=== PATIENT | female | born 1995 | race Caucasian/White ===

== ENCOUNTER 2018-07-09 17:29 | Outpatient (CLI) | payer MEDICAID ==
[~2018-07-09] VITALS: Ht 160 cm; Wt 69.8 kg
[2018-07-09 17:54] VITALS: BP_SYST 116; PULSE 109; Ht 160 cm; Wt 69.8 kg
[2018-07-09] MEDS ORDERED: PNV11TAB PO (17:56)
--- NOTE | 2018-07-09 21:03 | PN ---
Triage Information Date/Time Reason for visit: Possible leakage of fluid Weeks of Gestation 26 weeks and 2 days /Para Diabetes: none Hypertention: none Objective Vital Signs Date Temp Pulse Resp B/P (MAP) Pulse Ox O2 O2 Flow FiO2 Time Delivery Rate 07/09/18 98.3 109 116/ 17:54 Heart Rate: 130's Contractions: None Results/Medications Results 24 hrs Laboratory Tests Test 07/09/18 18:10 Membranes Rupture NEGATIVE Disposition: Discharge Assessment/Plan 22 years old 3 para 0020 at 26 weeks and 2 days with a LUÍS of 10/13/2018 complaining of possible leakage of fluid. She states good movement. She denies nausea, vomiting, shortness of breath, chest pain, headache, visual changes, vaginal bleeding. - FHR: No sign of metabolic acidosis- Category I - Continuous EFM, toco - She has no uterine contractions - Speculum exam performed: No leakage or gush of fluid seen. Nitrazine and ROM plus were negative - Ultrasound performed, cervical length 3.1 cm. LAITH 13.1 cm at. - Patient reassured - Symptoms and sign of labor, preeclampsia, kick count discussed with patient, she voiced understanding. All of her questions answered. - Patient was discharged home in stable condition with the appropriate discharge instructions provided. I would like patient to have close follow-up with her primary physician or outpatient clinic in 3 days or return to triage for worsening symptoms or any other urgent concerns. RICARDA CALIXTO Jul 09, 2018 21:03
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
== END 2018-07-09 20:34 | disposition home or self-care (01) ==
LOC: OBT 17:29 → L-D 17:30 → OBT 20:34
PROVIDERS: ATTEND Obstetrics & Gynecology
DX: O41.92X0 Disorder of amniotic fluid and membranes, unspecified, second trimester, not applicable or unspecified (principal); Z3A.26 26 weeks gestation of pregnancy
CPT/HCPCS: 76815; 76817; 84112; Z7500; G0463

== ENCOUNTER 2018-09-01 15:39 | Outpatient (CLI) | payer MEDICAID, OTHER ==
[~2018-09-01] VITALS: Ht 160 cm; Wt 75.2 kg
[~2018-09-01 15:39] MED LIST: PNV11TAB PO
[2018-09-01 16:03] VITALS: Ht 160 cm; Wt 75.2 kg
[2018-09-01 18:33] VITALS: BP 122/61; PULSE 104; RESP 19
--- NOTE | 2018-09-01 19:28 | PN ---
Triage Information Date/Time Reason for visit: One elevated blood pressure in office and dizziness, referred for further evaluation Weeks of Gestation 34 weeks /Para Diabetes: none Hypertention: none Objective Vital Signs Date Temp Pulse Resp B/P (MAP) Pulse Ox O2 O2 Flow FiO2 Time Delivery Rate 09/01/18 98.1 104 19 122/61 Room Air 18:33 (81) Heart Rate: 130's Contractions: None Results/Medications Result Diagram: 09/01/18 1722 09/01/18 1721 Results 24 hrs Laboratory Tests Test 09/01/18 17:10 09/01/18 17:21 09/01/18 17:22 Urine Color YELLOW Urine Clarity CLEAR Urine pH 7.0 Urine Specific [place] 1.015 Urine Ketones NEGATIVE Urine Nitrite NEGATIVE Urine Bilirubin NEGATIVE Urine Urobilinogen NEGATIVE Urine Leukocyte Esterase NEGATIVE Urine Hemoglobin NEGATIVE Urine Glucose NEGATIVE Urine Total Protein NEGATIVE Sodium Level 136 Potassium Level 3.9 Chloride Level 108 Carbon Dioxide Level 21 Anion Gap 7 Blood Urea Nitrogen 10 Creatinine 0.48 Est Glomerular Filtrat > 60 Rate mL/min Glucose Level 85 Uric Acid 4.3 Calcium Level 9.1 Total Bilirubin 0.3 Direct Bilirubin 0.00 Indirect Bilirubin 0.3 Aspartate Amino Transf (AST/SGOT) 14 L Alanine 15 Aminotransferase (ALT/SGPT) Alkaline Phosphatase 128 H Total Protein 6.8 Albumin 3.6 Globulin 3.20 Albumin/Globulin Ratio 1.12 White Blood Count 8.2 Red Blood Count 3.44 L Hemoglobin 9.7 L Hematocrit 29.3 L Mean Corpuscular Volume 85.2 Mean Corpuscular Hemoglobin 28.2 L Mean Corpuscular 33.1 Hemoglobin Concent Red Cell Distribution Width 14.3 Platelet Count 272 Mean Platelet Volume 9.3 Immature Granulocytes % 0.700 H Neutrophils % 59.6 Lymphocytes % 24.8 Monocytes % 10.6 Eosinophils % 3.9 Basophils % 0.4 Nucleated Red Blood Cells % 0.0 Immature Granulocytes # 0.060 H Neutrophils # 4.9 Lymphocytes # 2.0 Monocytes # 0.9 Eosinophils # 0.3 Basophils # 0.0 Nucleated Red Blood Cells # 0.0 Prothrombin Time 12.2 Prothrombin Time Ratio 1.0 INR International 0.89 Normalized Ratio Activated Partial Thromboplast 25.5 Time Fibrinogen 455.0 Plasma Fibrin >10 and <40 H Degradation Products Disposition: Discharge Assessment/Plan 23 years old 2 para 0010 with single intrauterine at 34 weeks complaining of dizziness with one elevated blood pressure in office, referred f or further evaluation. She states good movement. She denies nausea, vomiting, shortness of breath, chest pain, headache, visual changes, vaginal bleeding or LOF. -FHR: No sign of metabolic acidosis- Category I -Contractions: None -Ultrasound performed: Normal LAITH, BPP 8 out of 8 -Symptoms and sign of labor, preeclampsia, kick count discussed with patient, she voiced understanding. All of her questions answered. -Patient was discharged home in stable condition with the appropriate discharge instructions provided. I would like patient to have close follow-up with her primary physician or outpatient clinic in 1-2 days or return to triage for worsening symptoms or any other urgent concerns. 2) she states had dizziness, currently has no symptom. Hemoglobin is 9.7. Recommend increase ferrous sulfate to 325 mg twice daily with 2 vitamin daily. RICARDA CALIXTO Sep 01, 2018 19:28
== END 2018-09-01 19:11 | disposition home or self-care (01) ==
LOC: OBT 15:39 → L-D 15:40 → OBT 19:11
PROVIDERS: ATTEND Obstetrics & Gynecology
DX: O26.893 Other specified pregnancy related conditions, third trimester (principal); R42 Dizziness and giddiness; R03.0 Elevated blood-pressure reading, without diagnosis of hypertension; Z3A.34 34 weeks gestation of pregnancy
CPT/HCPCS: 76818; 80053; 81003; 84560; 85025; 85362; 85384; 85610; 85730; Z7500; G0463

== ENCOUNTER 2018-09-03 12:54 | Emergency (ER) | payer OTHER ==
[~2018-09-03] VITALS: Ht 160 cm; Wt 74.0 kg
[2018-09-03 13:08] VITALS: Ht 160 cm; Wt 74.0 kg
--- NOTE | 2018-09-03 14:09 | ERD ---
ER Documentation Chief Complaint Chief Complaint pt sent by OB for ER eval and EKG, cleared 2 days ago from OB, palp x 1 wk HPI This is a 23-year-old previously healthy female currently at 34 weeks gestational age who is presenting with 1 week of palpitations and reported tachycardia. She has been evaluated by her pastoral worker a few times this week, including today. There are no obvious problems with the , but the patient has remained tachycardic. She does endorse a history of anemia throughout her . She reports shortness of breath and a heaviness, but she denies any chest pain or pleuritic pain. She does also endorse intermittent episodes of lightheadedness. She denies any history of blood clots or bleeding disorders. She does not have a personal or family history of DVT or PE. She is not on any hormonal medications. She has not been bedbound for any reason. She has not had any recent surgeries or admissions to the hospital. She has not been on any flights or prolonged drives. She does not endorse any calf tenderness or swelling. The patient denies feeling sick recently. The patient denies fever or chills. The patient has had no headache or vision changes. The patient does not endorse neck or back pain. The patient denies nausea or vomiting. The patient denies abdominal pain. The patient denies changes to bowel movements or urination. The patient has had no focal deficits. The patient has had no weakness or numbness or tingling to the face or extremities. ROS All systems reviewed and are negative except as per history of present illness. Medications Home Meds Reported Medications Ferrous Sulfate* (Ferrous Sulfate*) 325 Mg Tabec, 325 MG PO TID, TAB 09/03/18 Loratadine* (Loratadine*) 10 Mg Tablet, 10 MG PO DAILY, #30 TAB 09/03/18 [id number] ( ) 1 Each Tablet, 1 TAB PO DAILY, TAB 07/09/18 Allergies Allergies: Coded Allergies: No Known Allergy (Unverified , 09/03/18) PMhx/Soc Medical and Surgical Hx: pt denies Medical Hx, pt denies Surgical Hx History of Surgery: Yes (Appendectomy) Anesthesia Reaction: No Hx Neurological Disorder: No Hx Respiratory Disorders: No Hx Cardiac Disorders: No Hx Psychiatric Problems: No Hx Miscellaneous Medical Probl: No Hx Alcohol Use: No Hx Substance Use: No Hx Tobacco Use: No FmHx Family History: No diabetes Physical Exam Vitals Vital Signs Date Temp Pulse Resp B/P (MAP) Pulse Ox O2 O2 Flow FiO2 Time Delivery Rate 09/03/18 98.6 135 18 100/70 97 Room Air 14:00 (80) 09/03/18 98.6 127 18 121/69 99 13:08 (86) Physical Exam Const: No apparent distress, well-developed, well-nourished Head: Normocephalic, Atraumatic Eyes: Normal Conjunctiva. Extraocular movements intact. ENT: Normal External Ears, Nose and Mouth. Neck: Full range of motion. No meningismus. Resp: Clear to auscultation bilaterally, No wheezes, rales or rhonchi Cardio: Regular rhythm. Tachycardia. No murmurs, rubs or gallops Abd: Soft, non tender, non distended. Gravid uterus. Normal bowel sounds Skin: No petechiae or rashes Back: No midline tenderness. No CVA tenderness Ext: No cyanosis, or edema Neur: Awake and alert, oriented 4. Cranial nerves intact. No facial droop. Normal strength, sensation and coordination. Psych: Normal Mood and Affect Result Diagram: 09/03/18 1406 09/03/18 1406 Results 24 hrs Laboratory Tests Test 09/03/18 14:06 White Blood Count 6.9 10^3/ul Red Blood Count 3.57 10^6/ul Hemoglobin 10.0 g/dl Hematocrit 29.9 % Mean Corpuscular Volume 83.8 fl Mean Corpuscular Hemoglobin 28.0 pg Mean Corpuscular Hemoglobin Concent 33.4 g/dl Red Cell Distribution Width 14.3 % Platelet Count 258 10^3/UL Mean Platelet Volume 9.1 fl Immature Granulocytes % 0.900 % Neutrophils % 61.5 % Lymphocytes % 22.4 % Monocytes % 11.2 % Eosinophils % 3.6 % Basophils % 0.4 % Nucleated Red Blood Cells % 0.0 /100WBC Immature Granulocytes # 0.060 10^3/ul Neutrophils # 4.2 10^3/ul Lymphocytes # 1.5 10^3/ul Monocytes # 0.8 10^3/ul Eosinophils # 0.3 10^3/ul Basophils # 0.0 10^3/ul Nucleated Red Blood Cells # 0.0 10^3/ul Sodium Level 136 mmol/L Potassium Level 3.9 mmol/L Chloride Level 108 mmol/L Carbon Dioxide Level 20 mmol/L Anion Gap 8 Blood Urea Nitrogen 8 mg/dl Creatinine 0.42 mg/dl Est Glomerular Filtrat Rate mL/min > 60 mL/min Glucose Level 114 mg/dl Calcium Level 9.1 mg/dl Troponin I < 0.012 ng/ml B-Type Natriuretic Peptide 13 PG/ML Thyroid Stimulating Hormone (TSH) 1.490 MIU/L Free Thyroxine 1.02 ng/dl Ethyl Alcohol Level < 10.0 mg/dl Procedures/MDM MDM The patient's presentation warrants further investigation. Previous medical records, if available, were reviewed. LABS The patient's laboratory testing was obtained and reviewed. No emergent treatment was required unless described below. CBC: No E/o systemic infection or severe anemia or thrombocytopenia. Normocytic anemia, nonemergent. Chemistry: No E/o severe acidosis or alkalosis or renal failure or diabetic ketoacidosis Troponin: No E/o acute ischemia BNP: No E/o heart failure TFTs: Within normal limits EKG EKG at 12:50PM read by me: Rate/Rhythm: Sinus tachycardia at 119 bpm Intervals: Normal Arnold: Normal Impression: Sinus tachycardia. Nonspecific repolarization changes without evidence of acute ischemia. EKG at 12:51PM read by me: Rate/Rhythm: Sinus tachycardia at 148 bpm Intervals: Normal Arnold: Normal Impression: Sinus tachycardia. Nonspecific repolarization changes without evidence of acute ischemia. IMAGING Imaging and Radiology interpretation reviewed. CXR FINDINGS: The lungs are clear. The heart size is normal. There is no pleural effusion. There is no pneumothorax. IMPRESSION: Normal chest radiograph. Electronically viewed and signed by Benny Sexton MD, on 09/03/2018 14:24 BLE Doppler FINDINGS: There is normal compressibility and flow within the bilateral common femoral, femoral and popliteal veins. The right posterior tibial vein was not visualized. The left posterior tibial vein is patent. The bilateral peroneal veins are patent. IMPRESSION: No sonographic evidence for deep venous thrombosis. Electronically viewed and signed by Kvng Doherty MD, on 09/03/2018 14:49 TREATMENT/DISPOSITION The patient presents with tachycardia and palpitations. Aside from tachycardia, the patient's workup is unremarkable. The patient has a reassuring physical exam. The patient is not clinically orthostatic. The patient is not dizzy. I have decreased suspicion for vertigo. The patient has no signs of emergent or symptomatic anemia. The patient does not have any emergent electrolyte or metabolic emergencies. The patient's thyroid studies were unremarkable. I have decrease suspicion for a thyroid disorder. The patient is not toxic appearing. I have decreased suspicion for an infectious etiology of symptoms. The patient's EKG and troponin are reassuring. I have low suspicion for acute coronary syndrome. I do not see evidence of any emergent cardiac arrhythmia, which includes but is not limited to heart block, Brugada syndrome or WPW. The patient has no heart murmurs or rales. There is no evidence of cardiomegaly on exam or chest xray. I have low suspicion for hypertrophic cardiomyopathy. I do not see evidence of CHF. The patient does not endorse any chest or pleuritic p ain. The history is negative for bleeding or clotting disorders. The patient has not been involved in any recent prolonged trips or surgeries or hospitalizations. The patient has no calf tenderness or swelling. The patient did have bilateral lower extremity Dopplers completed which were negative for DVT. I have also reassured by the negative troponin and negative BNP. There is no evidence of demand ischemia. I have very low suspicion for PE as the etiology of symptoms. That said, I discussed with the patient the possibility of obtaining a CTA of the chest today to definitively evaluate for the possibility of pulmonary embolism. Shared decision-making was enacted. Given the risks of radiation to the fetus, the patient declined the procedure. The patient has been evaluated multiple times by her pastoral worker, including this morning. The patient's tachycardia could be related to her third trimester . The patient may follow-up with her pastoral worker from an instep tract standpoint. I have low suspicion for an obstetric emergency. When the patient is allowed to rest in the room without any agitation, the patient's heart rate drops down to the low 100s. Anxiousness or stress could certainly be an etiology of her symptoms. Given that the patient has been tachycardic for 1-2 weeks, I did discuss the possibility of admission and observation in the hospital. The risks and benefits of admission versus discharge were discussed with the patient, but the patient preferred discharge with close follow-up. The patient understands that she should return to the emergency department for any recurrent or worsening symptoms. DISCHARGE Upon reevaluation of the patient, symptoms have improved. No emergent diagnoses were identified. At this time, I feel that the patient stable for discharge. The patient was instructed to follow-up with a primary care physician in 1-3 d ays. The patient will be given strict precautions with which to return to the emergency department. Prescriptions: None The patient's blood pressure was elevated at greater than 120/80 while in the emergency department. The patient was otherwise stable with no evidence of hypertensive urgency or emergency. The patient does not require admission for blood pressure control. I have discussed with the patient the risks of hypertension. I have instructed the patient to return to the ER for any new or worsening symptoms including chest pain, shortness of breath, headache, blurred vision, confusion, nausea, vomiting or LOC. I have advised the patient to follow up with the primary care physician for outpatient monitoring and treatment for hypertension in 1-3 days. Disclaimer: Inadvertent spelling and grammatical errors are likely due to EHR/dictation software use and do not reflect on the overall quality of patient care. Note that the electronic time recorded on this note does not necessarily reflect the actual time of the patient encounter. Departure Diagnosis: Primary Impression: Sinus tachycardia Additional Impressions: Palpitations Third trimester at less than 36 weeks Normocytic anemia Condition: Stable Patient Instructions: Anemia During , Palpitations, : Your Third Trimester Changes, Sinus Tachycardia Additional Instructions: Thank you for for coming to [facility] for your care today. Please ask your nurse or provider if you have questions about your care today and do not leave until all your questions have been answered. Please use any medications given as directed and follow-up with your doctor (or the doctor you were referred to) in the next 1-3 days. If you do not have a primary care doctor you may follow up at the community hospital or formerly [facility] (listed below). You may also use motrin and tylenol as needed for fever and/or pain unless instructed otherwise by your provider or nurse. Indications for more urgent follow-up have been discussed, but you may return to the Emergency Department at ANY time for any worrisome or worsening symptoms. If you have abdominal pain, please know that no test or exam you received is perfect and you should follow up within 8 hours for continued pain. If you had any imaging studies today, such as an X-Ray or CT Scan, these studies will be reviewed later by a radiologist. You will be called if there are important findings that were not identified today, so make sure the contact information you provided at registration is correct. If you received any narcotic pain control medicine today, such as Vicodin, Morp adriana or Dilaudid, your coordination and judgment may be affected for a number of hours. Please do not drive or operate heavy machinery, and you may want someone to assist you at home. If you were given a prescription for narcotic medication, be aware that it is very addictive- use sparingly and only if necessary. PLEASE SEEK FURTHER EVALUATION AND MANAGEMENT AT YOUR DOCTORS OFFICE WITHIN THE NEXT 1-3 DAYS. IT IS YOUR RESPONSIBILITY TO MAKE AN APPOINTMENT FOR FOLOW-UP CARE. IF YOU HAVE A PRIMARY DOCTOR, PLEASE CALL THEIR OFFICE TO SCHEDULE AN APPOINTMENT FOR FOLLOW UP. IF YOU DO NOT HAVE A PRIMARY DOCTOR YOU CAN CALL OUR PHYSICIAN REFERRAL HOTLINE AT IF YOU CAN NOT AFFORD TO SEE A PHYSICIAN YOU CAN CHOSE FROM THE FOLLOWING [facility]: [facility] [address] [facility]. [facility] [address] [facility] [facility] [address] [facility] [address] [facility]. [facility] [address] [facility]. [facility]. [address] KELSIE WOLF MD Sep 03, 2018 14:09
[2018-09-03] MEDS ORDERED: FER325 PO (15:27)
[2018-09-03] MEDS ORDERED: LORA10TA3 PO (15:27)
[2018-09-03 17:44] VITALS: BP 116/72; PULSE 102; RESP 18
== END 2018-09-03 17:45 | disposition home or self-care (01) ==
LOC: E/R 12:54
DX: O26.893 Other specified pregnancy related conditions, third trimester (principal); R00.0 Tachycardia, unspecified; R00.2 Palpitations; O99.013 Anemia complicating pregnancy, third trimester; Z3A.34 34 weeks gestation of pregnancy
CPT/HCPCS: 36415; 71045; 80048; 80307; 83880; 84439; 84443; 84484; 85025; 93970; Z7502

== ENCOUNTER 2018-09-23 10:17 | Emergency (ER) | payer OTHER ==
[~2018-09-23] VITALS: Ht 167.6 cm; Wt 77.1 kg
[~2018-09-23 10:17] MED LIST changes: +FER325 PO; +LORA10TA3 PO
[2018-09-23 10:43] VITALS: Ht 167.6 cm; Wt 77.1 kg
--- NOTE | 2018-09-23 13:00 | ERD ---
ER Documentation Chief Complaint Chief Complaint Sent from OB for evaluation tachycardia and low Sat ROS All systems reviewed and are negative except as per history of present illness. Medications Home Meds Reported Medications Ferrous Sulfate* (Ferrous Sulfate*) 325 Mg Tabec, 325 MG PO TID, TAB 09/03/18 Loratadine* (Loratadine*) 10 Mg Tablet, 10 MG PO DAILY, #30 TAB 09/03/18 [id number] ( 19) 1 Each Tablet, 1 TAB PO DAILY, TAB 07/09/18 Allergies Allergies: Coded Allergies: No Known Allergy (Unverified , 09/23/18) PMhx/Soc History of Surgery: Yes (Appendectomy) Anesthesia Reaction: No Hx Neurological Disorder: No Hx Respiratory Disorders: No Hx Cardiac Disorders: No Hx Psychiatric Problems: No Hx Miscellaneous Medical Probl: No Hx Alcohol Use: No Hx Substance Use: No Hx Tobacco Use: No Smoking Status: Never smoker Physical Exam Vitals Vital Signs Date Temp Pulse Resp B/P (MAP) Pulse Ox O2 O2 Flow FiO2 Time Delivery Rate 09/23/18 98.2 105 18 118/85 98 Room Air 13:58 (96) 09/23/18 98.9 125 20 134/76 94 10:43 (95) Physical Exam Const: No acute distress Head: Atraumatic Eyes: Normal Conjunctiva ENT: Normal External Ears, Nose and Mouth. Neck: Full range of motion. No meningismus. Resp: Clear to auscultation bilaterally Cardio: Regular rate and rhythm, no murmurs Abd: Soft, non tender, non distended. Normal bowel sounds Skin: No petechiae or rashes Back: No midline or flank tenderness Ext: No cyanosis, or edema Neur: Awake and alert Psych: Normal Mood and Affect Result Diagram: 09/23/18 1238 09/23/18 1238 Results 24 hrs Laboratory Tests Test 09/23/18 12:38 White Blood Count 9.3 10^3/ul Red Blood Count 3.89 10^6/ul Hemoglobin 10.7 g/dl Hematocrit 32.6 % Mean Corpuscular Volume 83.8 fl Mean Corpuscular Hemoglobin 27.5 pg Mean Corpuscular Hemoglobin Concent 32.8 g/dl Red Cell Distribution Width 14.8 % Platelet Count 237 10^3/UL Mean Platelet Volume 9.4 fl Immature Granulocytes % 0.500 % Neutrophils % 67.2 % Lymphocytes % 15.0 % Monocytes % 12.6 % Eosinophils % 4.3 % Basophils % 0.4 % Nucleated Red Blood Cells % 0.0 /100WBC Immature Granulocytes # 0.050 10^3/ul Neutrophils # 6.3 10^3/ul Lymphocytes # 1.4 10^3/ul Monocytes # 1.2 10^3/ul Eosinophils # 0.4 10^3/ul Basophils # 0.0 10^3/ul Nucleated Red Blood Cells # 0.0 10^3/ul Sodium Level 138 mmol/L Potassium Level 4.1 mmol/L Chloride Level 109 mmol/L Carbon Dioxide Level 21 mmol/L Anion Gap 8 Blood Urea Nitrogen 4 mg/dl Creatinine 0.42 mg/dl Est Glomerular Filtrat Rate mL/min > 60 mL/min Glucose Level 101 mg/dl Calcium Level 9.3 mg/dl Current Medications Medications Dose Sig/Radha Start Time Status Last (Trade) Ordered Route PRN Stop Time Admin Dose Reason Admin IV Flush 10 ml STK-MED 09/23/18 DC (NS 10 ml) ONCE .ROUTE 13:24 09/23/18 13:25 Sodium 100 ml @ ud STK-MED 09/23/18 DC Chloride ONCE .ROUTE 13:09/23/18 13:25 Iohexol 100 ml @ ud STK-MED 09/23/18 DC ONCE .ROUTE 13:09/23/18 13:25 Procedures/MDM DOCUMENTS REVIEWED: ED nurse, [ ] LAB INTERPRETATION: [ ] EKG: Time: [ ] My Interpretation IMAGING: PROCEDURE: XR Chest. CLINICAL INDICATION: chest pain TECHNIQUE: Single frontal view of the chest was obtained COMPARISON: None FINDINGS: The heart and mediastinum are within normal limits. There is a mild patchy right lower lobe infiltrate. The lungs are otherwise clear. There is no pleural effusion or pneumothorax. RPTAT: AA IMPRESSION: Mild patchy right lower lobe infiltrate. .Kvng Doherty MD, Date Time Electronically viewed and signed by .Kvng Doherty MD, on 09/23/2018 12:49 .S/ ED COURSE: [] REEXAMINATION/REEVALUATION: Time: 14:50. CT pulmonary angiogram findings as above nondiagnostic. Case discussed with Dr. Sexton. VQ scan recommended. Extensive conversation with the patient regarding further imaging and additional radiation exposure risks. Decision was made to proceed with imaging to rule out pulmonary embolism. MEDICAL DECISION MAKIN-year-old female G1, P0, last menstrual. 01/05/2018 with a EDC of 10/13/2018 referred to the ED for evaluation of shortness of breath and tachycardia. Patient was being seen at [facility] for a regular follow-up and found to be tachycardia with heart rates up to 140. Admit to [med/surg, telemetry, ICU] for further evaluation and management. CALLS/CONSULTS: Time: [ ], [ ]. PATIENT CARE TRANSITIONED: Time: [], [ ]. Counseled [patient and family] regarding diagnosis, diagnostic results and plan for admission Departure Diagnosis: Primary Impression: Tachycardia Additional Impressions: Shortness of breath Weeks of gestation: 37 weeks Qualified Codes: Z3A.37 - 37 weeks gestation of RAÚL PELAEZ MD September 23, 2018 12:59
[2018-09-23] MEDS ORDERED: IOHEXOL 100 ML ONE (13:24)
[2018-09-23] MEDS ORDERED: SOD CHLORIDE 0.9% 100 ML ONE (13:24)
[2018-09-23 15:35] VITALS: BP 126/91; PULSE 108; RESP 18
== END 2018-09-23 15:35 | disposition home or self-care (01) ==
LOC: E/R 10:17
DX: O99.89 Other specified diseases and conditions complicating pregnancy, childbirth and the puerperium (principal); R00.0 Tachycardia, unspecified; R06.02 Shortness of breath; Z3A.37 37 weeks gestation of pregnancy
CPT/HCPCS: 71045; 71275; 80048; 85025; 93005; Q9967; Z7502; Z7610

== ENCOUNTER 2018-10-16 10:39 | Inpatient (IN) | payer OTHER ==
[~2018-10-16] VITALS: Ht 160 cm; Wt 80.6 kg
[2018-10-16 11:57] VITALS: Ht 160 cm; Wt 80.6 kg
[2018-10-16 11:58] VITALS: BP 115/61; PULSE 98; RESP 18
[2018-10-16] MEDS ORDERED: OXYTOCIN 30 UNITS/LR 500 ML IV SCH ×2 (13:30)
[2018-10-16] MEDS ORDERED: METHYLERGONOVINE 0.2 MG INJ IM PRN (13:30)
[2018-10-16] MEDS ORDERED: LIDOCAINE 1% (MPF) 30 ML INJ INJ PRN (13:30)
[2018-10-16] MEDS ORDERED: OXYTOCIN 30 UNITS/LR 500 ML IV PRN (13:30)
[2018-10-16] MEDS ORDERED: CARBOPROST 250 MCG INJ IM PRN (13:30)
[2018-10-16] MEDS ORDERED: MISOPROSTOL 200 MCG TAB PR PRN (13:30)
[2018-10-16] MEDS ORDERED: BUTORPHANOL 2 MG INJ IV PRN ×2 (13:30)
[2018-10-16] MEDS: MISOPROSTOL 50 MCG CAPSULE PO SCH ×2 (18:28→23:19)
[2018-10-16] MEDS: LACTATED RINGER'S 1,000 ML IV SCH (22:16)
[2018-10-17] MEDS: MISOPROSTOL 50 MCG CAPSULE PO SCH ×6 (03:46→21:00)
[2018-10-17] MEDS: LACTATED RINGER'S 1,000 ML IV SCH ×3 (06:16→22:10)
--- NOTE | 2018-10-17 12:24 | HP ---
Date/Time of Note Date/Time of Note DATE: 10/17/18 TIME: 12:19 OB - History Hx of Present Free Text/Dictation 23-year-old female 3 para 0 AB 2 at 40+ weeks gestation admitted for induction of labor Last Menstrual Period: Jan 06, 2018 Estimated Due Date: October 13, 2018 : 3 Para: 0 Therapeutic : 2 Ultrasounds: Normal mid trimester US Obstetrical Complications: None Medical Complications: Other Past Family/Social History * Past Medical, Surgical, Family and Obstetric Histories reviewed from chart. Blood Type: B+ Rubella: immune RPR/VDRL: Negative GBS Status: Negative HBsAG: Negative OB Admission Exam Vital Signs Vital Signs Vital Signs Date Temp Pulse Resp B/P (MAP) Pulse Ox O2 O2 Flow FiO2 Time Delivery Rate 10/16/18 98.1 98 18 115/61 11:58 (79) Physical Exam HEENT: WNL Heart: Rhythm Normal Lungs: Clear, Equal Abdomen: WNL Extremities: Normal Reflexes: Normal Cervical Dilatation: None Effacement: 0% Station: -3 Membranes: Intact Heart Rate: 140's Accelerations: Accelerations Present Decelerations: No Decelerations Varibility: Marked Contractions on Admission: None Last 72 hours Lab Results CBC & BMP 10/16/18 14:30 OB Assessment/Plan Other Assessment: Post term and desires induction of labor Other plan: This labor Via Cytotec ingestion BHARTI MEJIA MD October 17, 2018 12:24
[2018-10-18] MEDS: MISOPROSTOL 50 MCG CAPSULE PO SCH (01:00)
[2018-10-18] MEDS ORDERED: OXYTOCIN 30 UNITS/LR 500 ML IV SCH (02:00)
[2018-10-18] MEDS: LACTATED RINGER'S 1,000 ML IV SCH ×4 (07:08→21:16)
[2018-10-18] MEDS ORDERED: FENTAnyl 2MCG/ML-ROPIV 0.2% 100 ML ONE (13:03)
--- NOTE | 2018-10-18 13:05 | PN ---
Date/Time of Note Date/Time of Note DATE: 10/18/18 TIME: 13:05 OB Subjective Subjective Subjective Complaint of minimal uterine contractions OB Objective Objective Objective Vital signs are stable in general physical exam is unchanged Cervix is 50% and 2 cm Membranes are ruptured and fluid appeared clear OB Assessment/Plan Other Assessment: Term gestation Unexplained tachycardia Other plan: Continue with Pitocin augmentation of labor BHARTI MEJIA MD October 18, 2018 13:05
--- NOTE | 2018-10-18 13:13 | PREAC ---
Date/Time of Note Date/Time of Note DATE: 10/18/18 TIME: 13:12 Anesthesia Eval and Record Evaluation Time Pre-Procedure Interview DATE: 10/18/18 TIME: 12:34 Age 23 Sex female NPO: 8 hrs Preoperative diagnosis iup @ 40 + wks., , labor Planned procedure judi Past Medical History Past Medical History: Includes : : (3), Para: (0), Gestational age: (40 plus wks.) Surgery & Anesthesia Issues No known issue Meds Anticoagulation: No Beta Mar within 24 hr: No Reason Beta Mar not given: Pt. not on B-Mar Reported Medications Ferrous Sulfate* (Ferrous Sulfate*) 325 Mg Tabec, 325 MG PO TID, TAB 09/03/18 Loratadine* (Loratadine*) 10 Mg Tablet, 10 MG PO DAILY, #30 TAB 09/03/18 [id number] ( 19) 1 Each Tablet, 1 TAB PO DAILY, TAB 07/09/18 Current Medications Lactated Ringer's 1,000 ml @ 125 mls/hr Q8H IV Last administered on 10/18/18at 12:23; Admin Dose 125 MLS/HR; Start 10/16/18 at 13:16 Butorphanol Tartrate (Stadol) 1 mg Q2H PRN IV .PAIN SCALE 1-5; Start 10/16/18 at 13:30 Butorphanol Tartrate (Stadol) 2 mg Q2H PRN IV .PAIN SCALE 6-10; Start 10/16/18 at 13:30 Lidocaine (Xylocaine 1% (Mpf)) 30 ml ONCE PRN INJ .EPISIOTOMY; Start 10/16/18 at 13:30 Oxytocin/Lactated Ringer's 500 ml @ 500 mls/hr ONCE POST IV ; Start 10/16/18 at 13:30 Oxytocin/Lactated Ringer's 500 ml @ 125 mls/hr POST IV ; Start 10/16/18 at 13:30 Oxytocin/Lactated Ringer's 500 ml @ 0 mls/hr ONCE PRN IV .VAGINAL BLEEDING; Start 10/16/18 at 13:30 Methylergonovine Maleate (Methergine) 0.2 mg ONCE PRN IM .VAGINAL BLEEDING; Start 10/16/18 at 13:30 Carboprost Tromethamine (Hemabate) 250 mcg ONCE PRN IM .VAGINAL BLEEDING; Start 10/16/18 at 13:30 Misoprostol (Cytotec) 1,000 mcg ONCE PRN TN .VAGINAL BLEEDING; Start 10/16/18 at 13:30 Oxytocin/Lactated Ringer's 500 ml @ 0 mls/hr FOR AUGMENTATION IV Last administered on 10/18/18at 03:09; Admin Dose 1 MLS/HR; Start 10/18/18 at 02:00 Meds reviewed: Yes Allergies Coded Allergies: No Known Allergy (Unverified , 09/23/18) Allergies Reviewed: Yes Labs/Studies Labs Reviewed: Reviewed by anesthesiologist Result Diagram: 10/16/18 1430 test: Positive Pre-procedure Exam Last vitals Vital Signs Date Temp Pulse Resp B/P (MAP) Pulse Ox O2 O2 Flow FiO2 Time Delivery Rate 10/16/18 98.1 98 18 115/61 11:58 (79) Airway: Adequate mouth opening, Adequate thyromental dist Mallampati: Mallampati II Teeth: Normal Lung: Normal Heart: Normal ASA Physical Status ASA physical status: 2 Emergency: E Planned Anesthetic Neuraxial: Epidural Planned Pain Management Epidural, Local by surgeon Pre-operative Attestations Prior to commencing anesthesia and surgery, the patient was re-evaluated, there was verification of: *The patient's identity *The results of appropriate recent lab work and preoperative vital signs *The above evaluation not changing prior to induction *Anesthetic plan, risk benefits, alternative and complications discussed with patient/family; questions answered; patient/family understands, accepts and wishes to proceed. [employer] used SIXTO CASAS MD October 18, 2018 13:13
[2018-10-18] MEDS: FENTAnyl 2MCG/ML-ROPIV 0.2% 100 ML BAG EPI SCH ×2 (13:20→17:59)
[2018-10-18] MEDS ORDERED: ONDANSETRON 4 MG INJ IV PRN (13:30)
[2018-10-18] MEDS ORDERED: NALOXONE (0.4 MG/ML) INJ IV PRN (13:30)
[2018-10-18] MEDS ORDERED: MINERAL OIL LIGHT 10 ML VIAL TOP PRN (21:30)
--- NOTE | 2018-10-18 23:44 | LDN ---
Date/Time of Note Date/Time of Note DATE: 10/18/18 TIME: 23:41 Delivery Summary of a viable baby girl weighing 3290 grams or 7# 4 oz, 20" long, and with Apgars of 8/9. Weeks of Gestation 40w 5d Placenta Delivered: Spontaneously Meconium: none Episiotomy: No Perineal laceration: 2 Laceration repair: 2nd degree perineal laceration and b/l labial lacerations all repaired with 2-0 chromic. Anesthesia type: Epidural (and local.) Estimated blood loss: 150 Sponge & Needle done & correct: Yes All needle counts correct: Yes Any foreign bodies felt in the: No (vagina) Infant Delivery Information Sex Infant Sex: female Apgars 1 Minute: 8 5 Minute: 9 Suctioning Nose & mouth suctioned at hank: Yes Delee suction performed: No Umbilical Cord Umbilical cord with: 3 Vessels Cord presentations: no nuchal cord Cord Blood was obtained: Yes Mother & Baby Disposition Disposition Mom & Baby to Maternity; Good: Yes Baby to NICU: No AMANDA ALVAREZ MD October 18, 2018 23:44
[2018-10-19] MEDS ORDERED: MISOPROSTOL 200 MCG TAB PR PRN
[2018-10-19] MEDS ORDERED: OXYTOCIN 30 UNITS/LR 500 ML IV PRN
[2018-10-19] MEDS ORDERED: LANOLIN HPA 1 PKT TOP PRN
[2018-10-19] MEDS ORDERED: BENZOCAINE 20% 56 ML SPRAY TOP PRN
[2018-10-19] MEDS ORDERED: METHYLERGONOVINE 0.2 MG INJ IM PRN
[2018-10-19] MEDS ORDERED: HYDROCODONE/APAP (5/325) TAB PO PRN
[2018-10-19] MEDS ORDERED: CARBOPROST 250 MCG INJ IM PRN
[2018-10-19] MEDS: IBUPROFEN 600 MG TAB PO SCH ×4 (00:20→17:43)
[2018-10-19 01:00] VITALS: BP 115/70; PULSE 97; RESP 18
[2018-10-19] MEDS: LACTATED RINGER'S 1,000 ML IV* SCH ×4 (01:47→23:44)
--- NOTE | 2018-10-19 01:53 | PAC ---
Date/Time of Note Date/Time of Note DATE: 10/19/18 TIME: 01:52 Post-Anesthesia Notes Post-Anesthesia Note Last documented vital signs Vital Signs Date Temp Pulse Resp B/P (MAP) Pulse Ox O2 O2 Flow FiO2 Time Delivery Rate 10/19/18 98.0 97 18 115/70 Room Air 01:00 (85) Activity: WNL Respiratory function: WNL Cardiovascular function: WNL Mental status: Baseline Pain reasonably controlled: Yes Hydration appropriate: Yes Nausea/Vomiting absent: Yes SIXTO CASAS MD October 19, 2018 01:52
[2018-10-19 02:00] VITALS: BP 118/69; PULSE 88; RESP 19
[2018-10-19] MEDS: OXYTOCIN 30 UNITS/LR 500 ML IV SCH ×2 (03:29→09:44)
[2018-10-19 04:00] VITALS: BP 121/71; PULSE 83; RESP 18
[2018-10-19 08:30] VITALS: BP 110/63; PULSE 83; RESP 18
[2018-10-19] MEDS: SENNA/DOCUSATE NA (8.6MG/50MG) TAB PO SCH ×2 (09:39→20:32)
[2018-10-19] MEDS ORDERED: WITCH HAZEL/GLYCERIN PAD PR PRN (14:00)
[2018-10-19 15:42] VITALS: BP 114/70; PULSE 95; RESP 18
--- NOTE | 2018-10-19 18:27 | PD.PPDC ---
NURSING MANAGER Discharge Instruction Provider Information Physician Information 28-year-old female had vaginal delivery Diagnosis [id number] Final Diagnosis: Suhlx4i Status post vaginal delivery Condition [id number] Patient Condition: Fpepy0l Good Diet [id number] Diet: Dknbh9a Resume Regular Diet Activity/Restrictions [id number] Activity: Gfffv1g Normal Activity May Shower Rldbc4Sk Restrictions: Gqdbv4e Nothing in the Vagina [id number] Return to Work or School: Xgfxl8g Dec 06, 2018 Follow-up Follow-up with Physician: 2, Day/Days (In clinic for follow-up) Return to clinic for [id number] OB Instructions: Ltyzu2i Breast Tenderness Depression Comment: Pelvic rest for 6 weeks BHARTI MEJIA MD October 19, 2018 18:27
--- NOTE | 2018-10-19 18:28 | DS ---
Date/Time of Note Date/Time of Note Home today or next day DATE: 10/19/18 TIME: 18:28 Obstetrical Discharge Record Final Diagnosis Final Diagnosis: Term delivered Other Final Diagnosis Status post vaginal delivery Vaginal Delivery Obstetrical Delivery: Laceration, Repaired Complications Other (Unexplained tachycardia) Augmentation: Yes Induction: Yes Condition on Discharge Physical Assessment Voiding: Yes Bowel Movement: Yes Breast: Soft, non-tender, Filling Fundus: Firm Abdomen and Incision: Abdomen is soft with firm fundus Episiotomy: Perineum is healing well and appears clean Calf Tenderness: No Patient Condition: Good BHARTI MEJIA MD October 19, 2018 18:28
[2018-10-19] MEDS ORDERED: IBUP-1542 PO (18:29)
[2018-10-19] MEDS: CEPHALEXIN 500 MG CAP PO SCH (18:37)
[2018-10-19 20:30] VITALS: BP 133/78; PULSE 98; RESP 20
[2018-10-20] MEDS: CEPHALEXIN 500 MG CAP PO SCH ×3 (00:19→11:36)
[2018-10-20] MEDS: IBUPROFEN 600 MG TAB PO SCH ×3 (00:20→11:36)
[2018-10-20 04:00] VITALS: BP 127/75; PULSE 100; RESP 19
[2018-10-20 08:31] VITALS: BP 118/66; RESP 18
[2018-10-20] MEDS ORDERED: DIPHTH/TET/ACEL PERTUSS (ADULT) 0.5 ML VIAL IM* ONE (09:00)
[2018-10-20] MEDS: SENNA/DOCUSATE NA (8.6MG/50MG) TAB PO SCH (09:00)
--- NOTE | 2018-10-21 15:18 | DELSUM ---
Delivery Summary A-C Datetime Report Generated by CPN: 10/21/2018 15:18 DELIVERY PERSONNEL Med Admin: Dries, Bobo MATERNAL INFORMATION Delivery Anesthesia: Epidural Medications in Delivery: LR 500ML PITOCIN 30 UNITS Delivery QBL (ml): 150 Placenta Cultured: No Maternal Complications: None LABOR SUMMARY EDC: 10/13/2018 00:00 No. Babies in Womb: 1 Attempted: No Labor Anesthesia: Epidural LABOR INFORMATION Reason for Induction: Postterm Reason for Induction- Other: 40.5 WKS Onset of Labor: 10/18/2018 13:30 Complete Dilatation: 10/18/2018 22:07 Cervical Ripening Agents: Cytotec @ Oxytocin: Induction Group B Beta Strep: Negative Antibiotics # of Doses: 0 Steroids Given: None Reason Steroids Not Administered: Not Applicable MEMBRANES Membranes Rupture Method: Artificial Rupture of Membranes: 10/18/2018 12:21 Length of Rupture (hr): 10.30 Amniotic Fluid Color: Clear Amniotic Fluid Amount: Moderate Amniotic Fluid Odor: Normal STAGES OF LABOR Stage 1 hr: 8 Stage 1 min: 37 Stage 2 hr: 0 Stage 2 min: 32 Stage 3 hr: 0 Stage 3 min: 4 Total Time in Labor hr: 9 Total Time in Labor min: 13 VAGINAL DELIVERY Episiotomy: None Laceration Extension: Second Degree Laceration Type: Perineal Other Laceration: 1ST DEGREE BILATERAL LABIAL Laceration Repair: Yes Initial Vag Sponge Count: 10 Final Vag Sponge Count: 10 Initial Vag Sharps Count: 1 Final Vag Sharps Count: 3 Sponge Count Correct: Yes; Vaginal Sweep Performed Sharps Count Correct: Yes BABY A INFORMATION Infant Delivery Date/Time: 10/18/2018 22:39 Method of Delivery: Vaginal Born in Route : No : N/A Forceps: N/A Vacuum Extraction: N/A Shoulder Dystocia : N/A SHOULDER DYSTOCIA BABY A Delivery Date/Time: 10/18/2018 22:39 PRESENTATION/POSITION BABY A Presentation: Cephalic Cephalic Presentation: Vertex Vertex Position: Left Occipital Anterior Breech Presentation: N/A PLACENTA INFORMATION BABY A Placenta Delivery Time : 10/18/2018 22:43 Placenta Method of Delivery: Spontaneous Placenta Status: Delivered SCORES BABY A Heart Rate 1 min: >100 bpm Resp Effort 1 min: Good Cry Reflex Irritability 1 min: Cough/Sneeze/Pulls Away Muscle Tone 1 min: Active Motion Color 1 min: Blue/Pale Resuscitation Effort 1 min: Tactile Stimulation SCORE 1 MIN: 8 Heart Rate 5 min: >100 bpm Resp Effort 5 min: Good Cry Reflex Irritability 5 min: Cough/Sneeze/Pulls Away Muscle Tone 5 min: Active Motion Color 5 min: Body [place], Extremit Blue Resuscitation Effort 5 min: Tactile Stimulation SCORE 5 MIN: 9 INFANT INFORMATION BABY A Gestational Age at Delivery: 40.5 Gestational Status: Full Term- 39- 40.6 Weeks Outcome : Liveborn Condition : Stable Sex: Female IDENTIFICATION/MEDS BABY A ID Band Number: [id number] ID Band Location: Right Leg; Left Arm Sensor Applied: Yes Sensor Number: [id number] Sensor Location : Cord Clamp Vitamin K Given : Not Given Erythromycin Given: Not Given WEIGHT/LENGTH BABY A Birthweight (gm): 3290 Infant Weight (lb): 7 Infant Weight (oz): 4 Length (in): 20.00 Infant Length (cm): 50.80 CORD INFORMATION BABY A No. Cord Vessels: 3 Nuchal Cord : N/A Cord Blood Taken: Yes Banking/Donate Info: NO Suction: Mouth; Nose ASSESSMENT BABY A Infant Complications: Decreased Variability; Extended Tachycardi; Multiple Variable Decels Physical Findings at Delivery: Caput Succedaneum Infant Respirations: Appears Normal Pull Over/ALS Called : No Care By: MELANIA Vasquez RN Transferred To: Remains with Mother
== END 2018-10-20 14:20 | disposition home or self-care (01) | DRG 805 ==
LOC: OBT 10:39 → L-D 10:39 → OBT 12:40 → L-D 12:40 → PP1 10-19 01:03
PROVIDERS: ADMIT Obstetrics & Gynecology; ATTEND Obstetrics & Gynecology
PROC: 10E0XZZ Delivery of Products of Conception, External Approach (ICD-10-PCS; principal; 2018-10-18)
PROC: 0KQM0ZZ Repair Perineum Muscle, Open Approach (ICD-10-PCS; 2018-10-18)
DX: O48.0 Post-term pregnancy (principal); O99.42 Diseases of the circulatory system complicating childbirth; Z37.0 Single live birth; R00.0 Tachycardia, unspecified; O70.1 Second degree perineal laceration during delivery; Z3A.40 40 weeks gestation of pregnancy
CPT/HCPCS: 62322; 76815; 76818; 80307; 85025; 85610; 85730; 86592; 86850; 86900; 86901; 87340; G0463; J2590; J3010; J7120